=== PATIENT | female | born 1970 | race Hispanic/Latino ===

== ENCOUNTER 2020-12-15 22:19 | Emergency (ER) | payer BC ==
[2020-12-15 22:30] VITALS: BP 128/83
[2020-12-15] MEDS ORDERED: KETOROLAC 30MG VIAL (30MG/ML) IVP ONE (23:00)
[2020-12-15] MEDS ORDERED: 0.9%NACL 1000ML 1,000 ML IV ONE (23:00)
[2020-12-15] MEDS ORDERED: ONDANSETRON 4MG INJ IVP ONE (23:00)
[2020-12-15 23:15] LABS: APPEARANCE,URINE Clear (CLEAR); BILIRUBIN,URINE Negative (NEGATIVE); COLOR,URINE Yellow (YELLOW); GLUCOSE, URINE (UA) Negative (NEGATIVE); KETONES,URINE Negative (NEGATIVE); LEUKOCYTE ESTERASE ,URINE Negative (NEGATIVE); NITRATE,URINE Negative (NEGATIVE); OCCULT BLOOD,URINE Negative (NEGATIVE); PROTEIN,URINE Negative (NEGATIVE); UROBILINOGEN,URINE 0.2 mg/dL (0.2-1.0)
[2020-12-15 23:18] LABS: BASOPHILS % (AUTO) 0.9 % (0.0-5.0); EOSINOPHILS % (AUTO) 3.1 % (0.0-8.0); HEMATOCRIT 36.6 % (36-48); LYMPHOCYTES % (AUTO) 36.4 % (21.0-51.0); MEAN CORPUSCULAR HEMOGLOBIN 30.3 pg (27.0-33.0); MEAN CORPUSCULAR HGB CONC 33.3 g/dL (32.0-36.0); MEAN CORPUSCULAR VOLUME 90.8 fL (79-99); MONOCYTES % (AUTO) 5.5 % (3.0-13.0); NEUTROPHILS % (AUTO) 53.8 % (40.0-77.0); PLATELET COUNT (AUTO) 278 K/uL (130-400); RED BLOOD CELL COUNT(AUTO) 4.03 MIL/uL (4.00-5.50); RED CELL DISTRIBUTION WIDTH 14.3 % (11.0-15.5)
[2020-12-15 23:25] LABS: CREATININE 0.7 mg/dL (0.5-1.5)
[2020-12-15 23:31] LABS: ALBUMIN 3.5 g/dL (3.5-5.0); BILIRUBIN,TOTAL 0.2 mg/dL (0.2-1.0); TOTAL PROTEIN, SERUM 7.5 g/dL (6.0-8.3)
[2020-12-15] MEDS ORDERED: KETOROLAC 30MG VIAL (30MG/ML) IM STA (23:34)
[2020-12-16 00:15] VITALS: BP 126/76
[2020-12-16] MEDS ORDERED: IBUP-2088 PO (00:16)
== END 2020-12-16 00:24 | disposition home or self-care (01) ==
LOC: EDH 22:19
DX: R10.11 Right upper quadrant pain (principal); R11.0 Nausea; Z79.1 Long term (current) use of non-steroidal anti-inflammatories (NSAID); Z79.899 Other long term (current) drug therapy
CPT/HCPCS: 36415; 80053; 81003; 82150; 83690; 85025; 96372; 99284; J1885; J2405; J7030

== ENCOUNTER 2021-07-18 21:18 | Observation (INO) | payer BC ==
[~2021-07-18] VITALS: Ht 160 cm; Wt 93.9 kg
[~2021-07-18 21:18] MED LIST: IBUP-2088 PO
[2021-07-18] MEDS ORDERED: ONDANSETRON 4MG INJ ONE (21:46)
[2021-07-18] MEDS ORDERED: KETOROLAC 15MG/ML VIAL (15MG/ML) ONE (21:46)
[2021-07-18] MEDS ORDERED: MORPHINE 4 MG SYG ONE (21:47)
[2021-07-18 21:48] LABS: BASOPHILS % (AUTO) 0.7 % (0.0-5.0); EOSINOPHILS % (AUTO) 0.9 % (0.0-8.0); HEMATOCRIT 38.1 % (36-48); LYMPHOCYTES % (AUTO) 19.4 % (21.0-51.0); MEAN CORPUSCULAR HEMOGLOBIN 30.2 pg (27.0-33.0); MEAN CORPUSCULAR HGB CONC 32.5 g/dL (32.0-36.0); MEAN CORPUSCULAR VOLUME 92.7 fL (79-99); MONOCYTES % (AUTO) 4.8 % (3.0-13.0); NEUTROPHILS % (AUTO) 73.9 % (40.0-77.0); PLATELET COUNT (AUTO) 285 K/uL (130-400); RED BLOOD CELL COUNT(AUTO) 4.11 MIL/uL (4.00-5.50); RED CELL DISTRIBUTION WIDTH 13.7 % (11.0-15.5); WHITE BLOOD COUNT (AUTO) 11.7 K/uL (4.8-10.8)
[2021-07-18] MEDS ORDERED: ONDANSETRON 4MG INJ IVP ONE (22:00)
[2021-07-18] MEDS ORDERED: KETOROLAC 15MG/ML VIAL (15MG/ML) IV ONE (22:00)
[2021-07-18] MEDS ORDERED: MORPHINE 4 MG SYG IVP ONE (22:00)
[2021-07-18] MEDS ORDERED: 0.9%NACL 1000ML 1,000 ML IV ONE (22:00)
[2021-07-18 22:03] LABS: CARBON DIOXIDE 23 mmol/L (21-32); CHLORIDE 104 mmol/L (101-111); CREATININE 0.6 mg/dL (0.5-1.5); GLOMERULAR FILTR. RATE CALC 112 mL/min (>60); GLUCOSE,RANDOM 113 mg/dL (70-105); POTASSIUM 3.6 mmol/L (3.5-5.1); SODIUM SERUM 138 mmol/L (136-145); UREA NITROGEN, BLOOD 6 mg/dL (7-18)
[2021-07-18 22:07] LABS: ALANINE AMINOTRANSFERASE 20 U/L (12-78); ALBUMIN 3.5 g/dL (3.5-5.0); ASPARTATE AMINOTRANSFERASE 14 U/L (10-37); BILIRUBIN,TOTAL 0.3 mg/dL (0.2-1.0)
[2021-07-18 22:08] LABS: LIPASE < 50 U/L (114-286)
[2021-07-18 23:15] LABS: APPEARANCE,URINE Clear (CLEAR); BILIRUBIN,URINE Negative (NEGATIVE); COLOR,URINE Yellow (YELLOW); GLUCOSE, URINE (UA) Negative (NEGATIVE); KETONES,URINE Negative (NEGATIVE); LEUKOCYTE ESTERASE ,URINE Negative (NEGATIVE); NITRATE,URINE Negative (NEGATIVE); OCCULT BLOOD,URINE Negative (NEGATIVE); PH,URINE 6.5 (5.0-8.0); PROTEIN,URINE Negative (NEGATIVE); UROBILINOGEN,URINE 0.2 mg/dL (0.2-1.0)
[2021-07-18] MEDS ORDERED: ACET-2079 PO (23:30)
[2021-07-19] VITALS (21 sets, daily range): BP systolic 111–148; BP diastolic 66–84
[2021-07-19] MEDS ORDERED: ZOSYN 3.375GM +NS 50ML IV SCH (01:30)
[2021-07-19] MEDS ORDERED: MORPHINE 4 MG SYG IVP ONE (01:30)
[2021-07-19] MEDS ORDERED: ONDANSETRON 4MG INJ IV PRN (03:00)
[2021-07-19] MEDS ORDERED: HYDROMORPHONE 1 MG INJ IV PRN (03:00)
[2021-07-19] MEDS: 0.9%NACL 1000ML 1,000 ML IV SCH ×3 (03:03→20:34)
[2021-07-19] MEDS ORDERED: ZOSYN 3.375GM+NS 50ML 50 ML IV SCH (05:00)
[2021-07-19] MEDS ORDERED: 0.9%NACL 50ML 50 ML IV ONE (06:11)
[2021-07-19] MEDS: MORPHINE 2 MG SYG IV PRN ×4 (06:13→22:55)
[2021-07-19 07:16] LABS: PROTHROMBIN TIME 10.9 SEC (9.6-11.6)
[2021-07-19 07:17] LABS: PARTIAL THROMBOPLASTIN TIME 27.2 SEC (26.3-35.5)
[2021-07-19 07:50] LABS: BASOPHILS % (AUTO) 0.5 % (0.0-5.0); CREATININE 0.6 mg/dL (0.5-1.5); EOSINOPHILS % (AUTO) 0.8 % (0.0-8.0); LYMPHOCYTES % (AUTO) 20.8 % (21.0-51.0); MEAN CORPUSCULAR HEMOGLOBIN 30.3 pg (27.0-33.0); MEAN CORPUSCULAR HGB CONC 32.3 g/dL (32.0-36.0); MEAN CORPUSCULAR VOLUME 93.8 fL (79-99); MONOCYTES % (AUTO) 5.8 % (3.0-13.0); NEUTROPHILS % (AUTO) 71.8 % (40.0-77.0); PLATELET COUNT (AUTO) 255 K/uL (130-400); POTASSIUM 3.8 mmol/L (3.5-5.1); RED BLOOD CELL COUNT(AUTO) 3.73 MIL/uL (4.00-5.50); RED CELL DISTRIBUTION WIDTH 13.9 % (11.0-15.5); WHITE BLOOD COUNT (AUTO) 9.9 K/uL (4.8-10.8)
[2021-07-19 07:56] LABS: ALBUMIN 3.1 g/dL (3.5-5.0); BILIRUBIN,TOTAL 0.3 mg/dL (0.2-1.0); TOTAL PROTEIN, SERUM 6.3 g/dL (6.0-8.3)
[2021-07-19] MEDS: FAMOTIDINE 20MG VIAL IV SCH ×2 (10:35→20:33)
[2021-07-19] MEDS ORDERED: PHARMACY COMMUNICATION MISC SCH (12:30)
[2021-07-19] MEDS: ZOSYN 3.375GM+NS 50ML 50 ML IV SCH ×2 (13:17→20:33)
[2021-07-19] MEDS ORDERED: MEPERIDINE-PF 25 MG/ML SYG IVP ONE (14:30)
[2021-07-19] MEDS ORDERED: BUPIVACAINE/PF 0.5% 10ML VIAL ONE (16:41)
[2021-07-19] MEDS ORDERED: MIDAZOLAM HCL 1 MG/ML 2ML VIAL ONE (16:52)
[2021-07-19] MEDS ORDERED: PROPOFOL 10 MG/ML 20ML VIAL IV ONE (16:52)
[2021-07-19] MEDS ORDERED: LIDOCAINE PF 100MG/5ML (2%) SYRINGE 5ML ONE (16:52)
[2021-07-19] MEDS ORDERED: ROCURONIUM 10MG/1ML SYR 10 MG/ML ML ONE (16:52)
[2021-07-19] MEDS ORDERED: SUCCINYLCHOLINE CHLORIDE 20 MG/ML 10 ML VIAL ONE (16:52)
[2021-07-19] MEDS ORDERED: FENTANYL CITRATE PF 50 MCG/1 ML 2ML VIAL ONE (16:53)
[2021-07-19] MEDS ORDERED: DEXAMETHASONE SOD PHOSPHATE 4 MG/ML 1ML VIAL ONE (17:04)
[2021-07-19] MEDS ORDERED: ONDANSETRON 4MG INJ ONE (17:05)
[2021-07-19] MEDS ORDERED: GLYCOPYRROLATE 1 MG/5 ML SYRINGE ONE (17:19)
[2021-07-19] MEDS ORDERED: NEOSTIGMINE 5MG/5ML SYR IV ONE (17:19)
[2021-07-20 00:15] VITALS: BP 103/68
[2021-07-20 03:30] VITALS: BP 119/76
[2021-07-20] MEDS: 0.9%NACL 1000ML 1,000 ML IV SCH (04:45)
[2021-07-20] MEDS: ZOSYN 3.375GM+NS 50ML 50 ML IV SCH (04:45)
[2021-07-20 05:08] LABS: BASOPHILS % (AUTO) 0.3 % (0.0-5.0); HEMATOCRIT 33.2 % (36-48); LYMPHOCYTES % (AUTO) 10.8 % (21.0-51.0); MEAN CORPUSCULAR HEMOGLOBIN 30.5 pg (27.0-33.0); MEAN CORPUSCULAR HGB CONC 33.1 g/dL (32.0-36.0); NEUTROPHILS % (AUTO) 84.5 % (40.0-77.0); PLATELET COUNT (AUTO) 246 K/uL (130-400); RED BLOOD CELL COUNT(AUTO) 3.61 MIL/uL (4.00-5.50); RED CELL DISTRIBUTION WIDTH 13.7 % (11.0-15.5); WHITE BLOOD COUNT (AUTO) 9.6 K/uL (4.8-10.8)
[2021-07-20 05:25] LABS: BILIRUBIN,TOTAL 0.3 mg/dL (0.2-1.0); CREATININE 0.6 mg/dL (0.5-1.5); MAGNESIUM 1.6 mg/dL (1.80-2.40); PHOSPHORUS 3.6 mg/dL (2.5-4.9); POTASSIUM 3.4 mmol/L (3.5-5.1); TOTAL PROTEIN, SERUM 6.3 g/dL (6.0-8.3)
[2021-07-20 07:30] VITALS: BP 113/62
[2021-07-20] MEDS: FAMOTIDINE 20MG VIAL IV SCH (09:08)
[2021-07-20] MEDS ORDERED: MAGNESIUM 2GM PREMIX 50ML 50 ML IV PRN (09:30)
[2021-07-20 11:26] VITALS: BP 115/65
== END 2021-07-20 12:45 | disposition home or self-care (01) ==
LOC: EDH 21:18 → EDHIP 07-19 02:46 → WSH 07-19 09:05
PROVIDERS: ADMIT Hospitalist; ATTEND Hospitalist
DX: K80.00 Calculus of gallbladder with acute cholecystitis without obstruction (principal); Z20.822 Contact with and (suspected) exposure to COVID-19; E83.42 Hypomagnesemia; K59.00 Constipation, unspecified; K82.8 Other specified diseases of gallbladder; E66.9 Obesity, unspecified; Z90.710 Acquired absence of both cervix and uterus; Z87.442 Personal history of urinary calculi; Z79.899 Other long term (current) drug therapy
CPT/HCPCS: 36415 ×3; 47562; 73030; 76705; 80053 ×3; 81003; 83690; 83735; 84100; 85025 ×3; 85610; 85730; 86850; 86900; 86901; 87040 ×2; 87635; 93005 ×2; 96361 ×2; 96365; 96366 ×2; 96367; 96375; 96376 ×2; 99285; A4216; A4222; A4223; A4600; A4649 ×2; C1769 ×3; G0378 ×34; J0330; J1100; J1885; J2001; J2250; J2270 ×2; J2405 ×2; J2543 ×5; J2704; J2710; J3010; J3475; J3490 ×5; J7030 ×2; J2175

== ENCOUNTER 2023-02-11 10:04 | Emergency (ER) | payer BC ==
[~2023-02-11] VITALS: Ht 160 cm; Wt 93.0 kg
[~2023-02-11 10:04] MED LIST changes: +ACET-2079 PO
[2023-02-11 10:07] VITALS: BP 119/74; PULSE 65; RESP 18
[2023-02-11] MEDS ORDERED: MORPHINE 2 MG SYG IVP ONE (10:30)
[2023-02-11] MEDS ORDERED: ONDANSETRON 4MG INJ IVP ONE (10:30)
[2023-02-11] MEDS ORDERED: LACTATED RINGERS 1000ML IV ONE (10:45)
[2023-02-11 10:47] LABS: BASOPHILS % (AUTO) 1.6 % (0.0-5.0); EOSINOPHILS # (AUTO) 0.22 K/uL (0.00-0.70); EOSINOPHILS % (AUTO) 3.5 % (0.0-8.0); HEMATOCRIT 41.2 % (36-48); IMMATURE GRANULOCYTE ABSOLUTE 0.01 K/uL (0-1); LYMPHOCYTES # (AUTO) 2.1 K/uL (1.0-4.8); LYMPHOCYTES % (AUTO) 33.9 % (21.0-51.0); MEAN CORPUSCULAR HEMOGLOBIN 30.8 pg (27.0-33.0); MEAN CORPUSCULAR HGB CONC 32.8 g/dL (32.0-36.0); MEAN CORPUSCULAR VOLUME 93.8 fL (79-99); MONOCYTES # (AUTO) 0.4 K/uL (0.1-1.0); MONOCYTES % (AUTO) 6.2 % (3.0-13.0); NEUTROPHILS # (AUTO) 3.4 K/uL (1.8-7.7); NEUTROPHILS % (AUTO) 54.6 % (40.0-77.0); PLATELET COUNT (AUTO) 273 K/uL (130-400); RED BLOOD CELL COUNT(AUTO) 4.39 MIL/uL (4.00-5.50); RED CELL DISTRIBUTION WIDTH 13.4 % (11.0-15.5); WHITE BLOOD COUNT (AUTO) 6.3 K/uL (4.8-10.8)
[2023-02-11 10:53] LABS: APPEARANCE,URINE CLEAR (CLEAR); BILIRUBIN,URINE NEGATIVE (NEGATIVE); GLUCOSE, URINE (UA) NEGATIVE (NEGATIVE); KETONES,URINE NEGATIVE (NEGATIVE); LEUKOCYTE ESTERASE ,URINE 25 Leu/uL (NEGATIVE); NITRATE,URINE NEGATIVE (NEGATIVE); OCCULT BLOOD,URINE NEGATIVE (NEGATIVE); PROTEIN,URINE NEGATIVE (NEGATIVE); UROBILINOGEN,URINE 0.2 mg/dL (0.2-1.0)
[2023-02-11 10:55] LABS: ADD UA MICROSCOPIC YES; COLOR,URINE LIGHT-YELLOW (YELLOW)
[2023-02-11 10:56] LABS: BACTERIA,URINE RARE /HPF (None Seen); RBC,URINE 0-1 /HPF (0-1); SQUAMOUS EPITHELIAL CELL,UR RARE /HPF (0-2)
[2023-02-11 10:57] LABS: CREATININE 0.5 mg/dL (0.5-1.5); POTASSIUM 3.9 mmol/L (3.5-5.1)
[2023-02-11 11:02] LABS: ALBUMIN 3.7 g/dL (3.5-5.0); BILIRUBIN,TOTAL 0.3 mg/dL (0.2-1.0); TOTAL PROTEIN, SERUM 7.8 g/dL (6.0-8.3)
[2023-02-11] MEDS ORDERED: IOHEXOL-350 75 ML VIAL IV ONE (13:44)
[2023-02-11] MEDS ORDERED: SULF1TAB42 PO (16:01)
== END 2023-02-11 16:17 | disposition home or self-care (01) ==
LOC: EDH 10:04
DX: N39.0 Urinary tract infection, site not specified (principal); Z79.899 Other long term (current) drug therapy; Z98.890 Other specified postprocedural states; Z90.710 Acquired absence of both cervix and uterus
CPT/HCPCS: 99285; 74177; 96374; 96361; 96375; 80053; 83690; 85025; 81001; 36415; J7120; J2270; J2405; Q9967